=== PATIENT | female | born 1980 | race Two or more races ===

== ENCOUNTER → 2024-06-06 13:51 | Outpatient (REF) | payer BC, SELFPAY | LOC: HWEVLT 13:51 | PROVIDERS: ATTENDING PHYSICIAN Radiology Diagnostic Radiology | DX: I83.892 Varicose veins of left lower extremity with other complications (principal) | CPT/HCPCS: 93971 ==

== ENCOUNTER → 2024-07-27 17:47 | Outpatient (REF) | payer BC, SELFPAY | LOC: WDC 17:47 | PROVIDERS: ATTENDING PHYSICIAN Family Medicine | DX: Z12.31 Encounter for screening mammogram for malignant neoplasm of breast (principal) | CPT/HCPCS: 77063; 77067 ==

== ENCOUNTER → 2025-02-16 13:09 | Outpatient (REF) | payer BC, SELFPAY | LOC: HWRAD 13:09 | PROVIDERS: ATTENDING PHYSICIAN Nurse Practitioner Family; FAMILY PHYSICIAN Family Medicine | DX: N91.2 Amenorrhea, unspecified (principal) | CPT/HCPCS: 76830; 76856 ==

== ENCOUNTER → 2025-07-31 18:39 | Outpatient (REF) | payer BC, SELFPAY | LOC: WDC 18:39 | PROVIDERS: ATTENDING PHYSICIAN Family Medicine | DX: Z12.31 Encounter for screening mammogram for malignant neoplasm of breast (principal) | CPT/HCPCS: 77063; 77067 ==